=== PATIENT | female | born 1990 | race Caucasian/White ===

== ENCOUNTER 2020-04-16 17:40 | Inpatient (IN) | payer BC ==
[2020-04-16] MEDS ORDERED: Oxytocin/Normal Saline 30 UNIT/500 ML BAG IV SCH ×2 (20:30→21:00)
[2020-04-16] MEDS ORDERED: Acetaminophen 325 MG Tab PO PRN (20:48)
[2020-04-16] MEDS ORDERED: Lactated Ringers 1,000 ML IV ONE (20:48)
[2020-04-16] MEDS ORDERED: Sodium Chloride 0.9% 10 ML Syringe FLUSH PRN (20:48)
[2020-04-16] MEDS ORDERED: Tranexamic Acid 1,000 MG in Sodium Chloride 0.9% 100 ML IV PRN (20:48)
[2020-04-16] MEDS ORDERED: Lidocaine 1% 30 ML SDV INJECT PRN (20:48)
[2020-04-16] MEDS ORDERED: Methylergonovine 0.2 MG/1 ML Amp IM PRN (20:48)
[2020-04-16] MEDS ORDERED: Misoprostol 400 MCG (4 X 100 MCG TAB) RECTAL PRN (20:48)
[2020-04-16] MEDS ORDERED: Carboprost Tromethamine 250 MCG/1 ML Amp IM PRN (20:48)
[2020-04-16] MEDS ORDERED: fentaNYL 100 MCG/2 ML SDV IVPUSH PRN (20:48)
[2020-04-16] MEDS ORDERED: Ondansetron 4 MG/2 ML SDV IVPUSH PRN (20:48)
[2020-04-16] MEDS ORDERED: Promethazine 25 MG/ML SDV IM PRN (20:51)
[2020-04-16] MEDS ORDERED: Naloxone 2 MG/2 ML Syringe IVPUSH PRN (20:51)
[2020-04-16] MEDS ORDERED: ePHEDrine 50 MG/ML SDV IVPUSH PRN (20:51)
[2020-04-16] MEDS: Lactated Ringers 1,000 ML IV SCH (20:55)
[2020-04-16] MEDS ORDERED: Lactated Ringers 1,000 ML IV SCH (21:00)
--- NOTE | 2020-04-16 22:47 | OBOUT ---
DATE: 04/16/2020 PROCEDURE: Non-stress test. INDICATION FOR NST: Spontaneous rupture of membranes and the patient not feeling contractions. REPORT: Baseline heart rate 120 beats per minute. Moderate aodq-uc-dmyr variability. Accelerations noted. No decelerations. [place] shows only irregular contractions. INTERPRETATION: Category 1 reassuring and reactive NST. Of note, the patient's cervix is not changed from what it was in the office a few days ago, so she is not in active labor at this time, but does have premature rupture of membranes. [facility] /[id number]
--- NOTE | 2020-04-17 00:20 | HP ---
CHIEF COMPLAINT: Spontaneous rupture of membranes. HISTORY OF PRESENT ILLNESS: This is a 29-year-old, 2, para 1-0-0-1, currently at 39-5/7 weeks' gestation based on last menstrual period, reports to Labor and Delivery for labor evaluation after having a large gush of clear fluid at approximately 4 o'clock this afternoon. After kind of organizing her things and being driven in by her , her cervix was checked and essentially unchanged from what it was in the office a couple of days ago. She reports having some very mild contractions, but nothing that she would really make note or consider painful. Denies any vaginal bleeding. movement has been good. Admits to some mild nausea. No headache. No chest pain. No shortness of breath. No diarrhea or constipation. No right upper quadrant pain, and her trace edema has been unchanged. Denies any symptoms of hypertension. Reports that her blood sugars continue to be extremely well controlled, and there are no other specific concerns or problems. LABORATORY: Blood type O positive. Antibody screen was negative. Rubella immune. Syphilis serology nonreactive. Urine culture negative. Hepatitis B negative. HIV negative. Gonorrhea and chlamydia negative. TSH normal at 1.11. Hepatitis C nonreactive. Wet prep negative. Glucose tolerance test 1-hour score was 184. Group B strep test is negative. OBSTETRICAL HISTORY: 11/12/2015, 40 weeks 5 days gestation, vaginal delivery, male infant, weighing 3810 g, 8 pounds 6.4 ounces, born via spontaneous vaginal delivery. That was complicated by gestational hypertension. She did have premature rupture of membranes and induced with Pitocin. She did have some mild -induced hypertension, and her PIH labs were negative. Her gestational diabetes for that was very well controlled with diet alone. The baby's name is Vinicio Ardon. She was in labor for 6 hours, pushed for about 12 minutes, and his scores were 7 and 9. There were no complications. PAST MEDICAL HISTORY: Acne, gestational diabetes, gestational hypertension, and varicella at age 14 or 15. PAST SURGICAL HISTORY: Right side rotator cuff repair in spring, and wisdom teeth extraction. FAMILY HISTORY: Mother, sister, and brother are all alive and well. Father is alive, had diabetes diagnosed at age 48. Maternal grandmother . No known health problems. Maternal grandfather had a heart attack and is alive. Paternal grandparents are , and she does not know their health history. Maternal aunt is alive and has had a heart attack. Three maternal uncles have had heart problems, 2 have had heart attacks, and 1 has a pacemaker. There is no family history of any bleeding problems, clotting disorders, defects, multiples, seizures, anesthesia problems, or cystic fibrosis. Salvador's family members are overall healthy. SOCIAL HISTORY: The patient is a nonsmoker. She has had no significant alcohol exposures. 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 Her is a rancher and schneider. This is their second child together. ALLERGIES: Zantac is an intolerance, causes her chest and throat to have a burning and stinging sensation. It is even worse than actual heartburn. MEDICATIONS: Vitamin D 1 capsule daily, vitamin 1 daily, Tums 500 mg 2 tabs as needed for heartburn. She was on aspirin throughout the majority of her and discontinued that last week. REVIEW OF SYSTEMS: Pertinent positives and negatives under the history of present illness. A 12 system review is otherwise negative. PHYSICAL EXAMINATION: Vital Signs: Temperature 97.5, pulse of 82, blood pressure 142/90, respiratory rate of 16, and O2 saturations 99% on room air. Additional blood pressure was 138/91. HEENT: Grossly unremarkable. Neck: Supple without adenopathy. Heart: Regular without murmur. Lungs: Clear to auscultation bilaterally. Abdomen/Genitourinary: Gravid, soft, and nontender. Vertex presentation. heart tones are at 120 beats per minute at baseline, moderate wlhc-cf-ikdp variability with accelerations noted. [place] shows contractions initially, irregular, after initiating Pitocin they are about every 2 to 3 minutes apart. Cervix is 2 cm, effacement was difficult for the nurse to determine, -3 station and posterior. Extremities: Trace edema. No erythema or tenderness noted. LABORATORY DATA: COVID test is negative. Hemoglobin 12.9 and platelets 254. ASSESSMENT: 1. 39-5/7 weeks' gestation by last menstrual period. 2. 2, para 1-0-0-1. 3. Premature rupture of membranes at 4 p.m. 4. Blood type A positive, rubella immune, and group B Streptococcus negative. 5. Diet-controlled gestational diabetes. 6. History of gestational hypertension prior , and now developing in this . PLAN: The patient has been admitted to the labor and delivery floor, and Pitocin initiated to help bring on labor, and expect that she will be delivering in the next 6 to 8 hours as soon as we can get her into labor. Blood pressures are right at the borderline since she is already ruptured. I have elected not to draw any preeclampsia labs at this time as it will not change the course of management, and the patient will already be on monitoring and precautions for the rest of her pregnancies because of a history of gestational hypertension. We will be expecting vaginal delivery, making any changes to plan as deemed necessary based on her clinical course. [facility] /[id number]
[2020-04-17] MEDS ORDERED: EPINEPHrine 1 MG/1 ML Amp ONE ×2 (01:59→02:00)
[2020-04-17] MEDS ORDERED: fentaNYL 100 MCG/2 ML SDV ONE (01:59)
[2020-04-17] MEDS ORDERED: Sodium Bicarbonate 4.2% 2.5 MEQ/5 ML SDV ONE ×2 (01:59→02:00)
[2020-04-17] MEDS ORDERED: fentaNYL 100 MCG/2 ML SDV ITHECAL ONE (02:00)
[2020-04-17] MEDS ORDERED: Sodium Chloride 0.9% 20 ML SDV ONE (02:00)
[2020-04-17] MEDS: Lactated Ringers 1,000 ML IV SCH (02:26)
--- NOTE | 2020-04-17 02:36 | PCM.SN.2 ---
- Free Text/Narrative Note: Intrathecal. Sitting position, sterile prep and drape. 1% lidocaine w bicarb for skinwheal to L2 L3 interspace, introducer, 24 ga pencan x 1. Pos CSF, neg heme, neg parasthesia. 0.1 ml 1:1000 pf Epi, 20 mcg pf sufenta, 30 mcg pf fentanyl, 0.4 ml pf NS and 6 mg of 0.75% pf marcaine injected after CSF aspiration. Pt to L lateral position. Procedure time 0155 to 0225
[2020-04-17] MEDS ORDERED: Simethicone 80 MG Tab.Chew PO PRN (05:56)
[2020-04-17] MEDS ORDERED: Benzocaine/Menthol 20%-0.5% Spray 56 GM Canister TOP PRN (05:56)
--- NOTE | 2020-04-17 06:42 | DEL ---
DATE: 04/17/2020 PREPROCEDURE DIAGNOSES: 1. 2, para 1-0-0-1. 2. A 39-5/7 weeks' gestation. 3. Gestational diabetes, diet controlled. 4. History of gestational hypertension, prior . 5. Blood type O positive, rubella immune, and group B streptococcus negative. 6. Premature rupture of membranes. POSTPROCEDURE DIAGNOSES: 1. 2, now para 2-0-0-2. 2. A 39-5/7 weeks' gestation. 3. Gestational diabetes, diet controlled. 4. History of gestational hypertension, prior . 5. Blood type O positive, rubella immune, and group B streptococcus negative. 6. Premature rupture of membranes. 7. Status post spontaneous vaginal delivery. 8. First-degree laceration repair. ANESTHESIA: Intrathecal. BRIEF HISTORY: A 29-year-old female with the above-listed diagnoses presented to the hospital with premature rupture of membranes. She had ruptured around 4 o'clock in the evening and presented closer to 8 p.m. and was having some irregular contractions but not really feeling them, and cervix was unchanged from her exam in the clinic. Pitocin was initiated, and around 2 o'clock in the morning, she was 4 cm dilated, and by 4 o'clock in the morning, she was 6 cm dilated, and at 5 a.m., she was complete and ready to push. Active-stage labor was about 4 hours. She pushed for 6 minutes and the placenta delivered after 3 minutes with the details as below. DESCRIPTION OF PROCEDURE: In the dorsal lithotomy position, the patient delivered a viable male in an OA position over an intact perineum. The baby was dried and stimulated and then placed up on the mother's abdomen. The nurse was then able to bulb suction the oral cavity, and a 3-vessel umbilical cord was doubly clamped and then cut. A cord blood sample was obtained. The placenta delivered by gentle cord traction and concomitant uterine massage, inspected and intact. Labia, vagina, and cervix were inspected, and the cervix was intact. She had a first-degree laceration that was repaired with 3-0 Vicryl in the usual fashion with good cosmetic result. ESTIMATED BLOOD LOSS: 400 mL. COMPLICATIONS: None. DISPOSITION: Mother and baby are to stay in the room to initiate breast- feeding. FINDINGS: Weight 3900 grams, 8# 10 oz and scores are 8 and 9. [facility] /[id number] MTDEstelle
[2020-04-17] MEDS: Ibuprofen 800 MG Tab PO PRN ×3 (09:45→23:26)
[2020-04-17] MEDS: Prenatal Multivitamin with Calcium/Folic Acid/Iron Tab PO SCH (09:45)
[2020-04-17] MEDS: Ferrous Sulfate 325 MG Tab PO SCH (09:45)
[2020-04-17] MEDS: Docusate Sodium 100 MG Cap PO PRN (23:26)
[2020-04-18] MEDS: Docusate Sodium 100 MG Cap PO PRN (09:13)
[2020-04-18] MEDS: Prenatal Multivitamin with Calcium/Folic Acid/Iron Tab PO SCH (09:13)
[2020-04-18] MEDS: Ibuprofen 800 MG Tab PO PRN (09:13)
[2020-04-18] MEDS: Ferrous Sulfate 325 MG Tab PO SCH (09:14)
[2020-04-18] MEDS ORDERED: Witch Hazel Medicated Pads 100/Jar TOP PRN (09:49)
--- NOTE | 2020-04-18 10:13 | PCM.PN ---
<FelicianokristyTanya Estelle - Last Filed: 04/18/20 10:08> - General Info Date of Service: 04/18/20 Admission Dx/Problem (Free Text): Labor and delivery, spontaneous vaginal Subjective Update: Patient is a 29-year-old s/p spontaneous vaginal delivery 04/16/20. Doing well today. No complaints. Pain is well controlled. Tolerating general diet without nausea, vomiting. Ambulating, voiding without difficulty. Passing gas. Breast feeding. Vaginal bleeding decreasing, similar to prior . Functional Status: Reports: Pain Controlled, Tolerating Diet, Ambulating, Urinating - Review of Systems General: Reports: No Symptoms HEENT: Reports: No Symptoms Pulmonary: Reports: No Symptoms Cardiovascular: Reports: No Symptoms Gastrointestinal: Reports: No Symptoms Genitourinary: Reports: No Symptoms Musculoskeletal: Reports: No Symptoms Skin: Reports: No Symptoms Neurological: Reports: No Symptoms Psychiatric: Reports: No Symptoms - Patient Data Vitals - Most Recent: Last Vital Signs Temp 98.6 F 04/17/20 20:00 Pulse 69 04/17/20 20:00 Resp 16 04/17/20 20:00 BP 137/76 04/17/20 20:00 Pulse Ox 100 04/17/20 20:00 Weight - Most Recent: 188 lb I&O - Last 24 Hours: Intake & Output 04/17/20 04/18/20 04/18/20 22:59 06:59 14:59 Intake Total 240 Balance 240 Med Orders - Current: Current Medications Acetaminophen (Tylenol) 650 mg PO Q4H PRN PRN Reason: Pain (Mild 1-3) and fever Last Admin: 04/17/20 23:26 Dose: 650 mg Documented by: Benzocaine/Menthol (Dermoplast Pain Relief [place]) 0 gm TOP Q4H PRN PRN Reason: Perineal comfort measures Carboprost Tromethamine (Hemabate Ds) 250 mcg IM ASDIRECTED PRN PRN Reason: HEMORRHAGE Docusate Sodium (Colace) 100 mg PO BID PRN PRN Reason: Constipation Last Admin: 04/18/20 09:13 Dose: 100 mg Documented by: Ferrous Sulfate (Ferrous Sulfate) 325 mg PO WITHBREAKFAST GEOVANNA Last Admin: 04/18/20 09:14 Dose: 325 mg Documented by: Oxytocin/Sodium Chloride (Pitocin In Ns 30 Unit/500 Ml) 30 unit in 500 mls @ 2 mls/hr IV TITRATE GEOVANNA; Protocol Last Titration: 04/17/20 06:50 Dose: 0 munits/min, 0 mls/hr Documented by: Tranexamic Acid 1,000 mg/ (Sodium Chloride) 110 mls @ 660 mls/hr IV ONETIME PRN PRN Reason: Bleeding Oxytocin/Sodium Chloride (Pitocin In Ns 30 Unit/500 Ml) 30 unit in 500 mls @ 2 mls/hr IV TITRATE GE[facility]NA; Protocol Last Titration: 04/17/20 09:00 Dose: 0 munits/min, 0 mls/hr Documented by: Ibuprofen (Motrin) 800 mg PO Q8H PRN PRN Reason: Cramping Last Admin: 04/18/20 09:13 Dose: 800 mg Documented by: Methylergonovine Maleate (Methergine) 0.2 mg IM ASDIRECTED PRN PRN Reason: Hemorrhage Misoprostol (Cytotec) 800 mcg RECTAL ASDIRECTED PRN PRN Reason: Hemorrhage Prenat Multivit/Bag Machine Helper/Iron/Folic Ac ( Plus Iron) 1 each PO DAILY [facility] Last Admin: 04/18/20 09:13 Dose: 1 each Documented by: Promethazine HCl (Phenergan) 12.5 mg IM Q6H PRN PRN Reason: Nausea/Vomiting Simethicone (Simethicone) 80 mg PO Q4H PRN PRN Reason: Gas Sodium Chloride (Saline Flush) 10 ml FLUSH ASDIRECTED PRN PRN Reason: Keep Vein Open Witdanica Butlerel (Tucks) 1 pad TOP ASDIRECTED PRN PRN Reason: Pain Discontinued Medications Ephedrine Sulfate (Ephedrine Sulfate) 5 mg IVPUSH Q5M PRN PRN Reason: See Label Comments Epinephrine HCl (Adrenalin) Confirm Administered Dose 1 mg .ROUTE .STK-MED ONE Stop: 04/17/20 02:00 Last Admin: 04/17/20 09:33 Dose: Not Given Documented by: Fentanyl (Sublimaze) 100 mcg IVPUSH Q1H PRN PRN Reason: Pain (moderate 4-6) Fentanyl (Sublimaze) Confirm Administered Dose 100 mcg .ROUTE .STK-MED ONE Stop: 04/17/20 02:00 Last Admin: 04/17/20 09:33 Dose: Not Given Documented by: Lactated Ringer's (Ringers, Lactated) 1,000 mls @ 125 mls/hr IV ASDIRECTED [facility] Last Admin: 04/17/20 02:26 Dose: 125 mls/hr Documented by: Lactated Ringer's (Ringers, Lactated) 1,000 mls @ 999 mls/hr IV BOLUS ONE Stop: 04/16/20 21:48 Last Admin: 04/17/20 01:45 Dose: 999 mls/hr Documented by: Lactated Ringer's (Ringers, Lactated) 1,000 mls @ 125 mls/hr IV ASDIRECTED [facility] Lidocaine HCl (Xylocaine-Mpf 1%) 30 ml INJECT ASDIRECTED PRN PRN Reason: Perineal Repair Naloxone HCl (Narcan) 0.1 mg IVPUSH SEECOMMENT PRN PRN Reason: Respiratory Depression Ondansetron HCl (Zofran) 4 mg IVPUSH Q4H PRN PRN Reason: Nausea/Vomiting Last Admin: 04/17/20 01:50 Dose: 4 mg Documented by: Sodium Bicarbonate (Sodium Bicarbonate 4.2%) Confirm Administered Dose 2.5 meq .ROUTE .STK-MED ONE Stop: 04/17/20 02:00 Last Admin: 04/17/20 09:33 Dose: Not Given Documented by: Sufentanil Citrate (Sufenta) Confirm Administered Dose 50 mcg .ROUTE .STK-MED ONE Stop: 04/17/20 02:00 Last Admin: 04/17/20 09:34 Dose: Not Given Documented by: - Exam General: Alert, Oriented, Cooperative, No Acute Distress HEENT: EOMI, Mucous Membr. Moist/Joice Neck: Supple Lungs: Clear to Auscultation, Normal Respiratory Effort Cardiovascular: Regular Rate, Regular Rhythm, No Murmurs GI/Abdominal Exam: Normal Bowel Sounds, Soft, Non-Tender (Female) Exam: Enlarged Uterus. No: Uterine Tenderness Extremities: Normal Inspection, Normal Range of Motion, Non-Tender, No Pedal Edema Peripheral Pulses: 2+: Brachial (L), Brachial (R) Skin: Warm, Dry, Intact Neurological: No New Focal Deficit, Normal Speech, Normal Tone Psy/Mental Status: Alert, Normal Affect, Normal Mood Sepsis Event Note - Evaluation Sepsis Screening Result: No Definite Risk - Problem List Review Problem List Initiated/Reviewed/Updated: Yes - Assessment Assessment:: Patient is a 29-year-old female s/p spontaneous vaginal delivery 04/16/20. Progressing as expected. - Plan Plan:: Discharge today. Provided anticipatory guidance and discussed reasons to seek medical attention. Will follow-up with baby in the clinic 04/20/20. <Ofe Coleman - Last Filed: 04/18/20 21:54> - Patient Data Vitals - Most Recent: Last Vital Signs Temp 97.4 F 04/18/20 08:00 Pulse 72 04/18/20 08:00 Resp 14 04/18/20 08:00 BP 133/85 04/18/20 08:00 Pulse Ox 100 04/17/20 20:00 Med Orders - Current: Current Medications Discontinued Medications Acetaminophen (Tylenol) 650 mg PO Q4H PRN PRN Reason: Pain (Mild 1-3) and fever Last Admin: 04/17/20 23:26 Dose: 650 mg Documented by: Benzocaine/Menthol (Dermoplast Pain Relief [place]) 0 gm TOP Q4H PRN PRN Reason: Perineal comfort measures Last Admin: 04/18/20 10:32 Dose: 1 spray Documented by: Carboprost Tromethamine (Hemabate Ds) 250 mcg IM ASDIRECTED PRN PRN Reason: HEMORRHAGE Docusate Sodium (Colace) 100 mg PO BID PRN PRN Reason: Constipation Last Admin: 04/18/20 09:13 Dose: 100 mg Documented by: Ephedrine Sulfate (Ephedrine Sulfate) 5 mg IVPUSH Q5M PRN PRN Reason: See Label Comments Epinephrine HCl (Adrenalin) Confirm Administered Dose 1 mg .ROUTE .STK-MED ONE Stop: 04/17/20 02:00 Last Admin: 04/17/20 09:33 Dose: Not Given Documented by: Fentanyl (Sublimaze) 100 mcg IVPUSH Q1H PRN PRN Reason: Pain (moderate 4-6) Fentanyl (Sublimaze) Confirm Administered Dose 100 mcg .ROUTE .STK-MED ONE Stop: 04/17/20 02:00 Last Admin: 04/17/20 09:33 Dose: Not Given Documented by: Ferrous Sulfate (Ferrous Sulfate) 325 mg PO WITHBREAKFAST GEOVANNA Last Admin: 04/18/20 09:14 Dose: 325 mg Documented by: Oxytocin/Sodium Chloride (Pitocin In Ns 30 Unit/500 Ml) 30 unit in 500 mls @ 2 mls/hr IV TITRATE GEOVANNA; Protocol Last Titration: 04/17/20 06:50 Dose: 0 munits/min, 0 mls/hr Documented by: Lactated Ringer's (Ringers, Lactated) 1,000 mls @ 125 mls/hr IV ASDIRECTED [facility] Last Admin: 04/17/20 02:26 Dose: 125 mls/hr Documented by: Lactated Ringer's (Ringers, Lactated) 1,000 mls @ 999 mls/hr IV BOLUS ONE Stop: 04/16/20 21:48 Last Admin: 04/17/20 01:45 Dose: 999 mls/hr Documented by: Lactated Ringer's (Ringers, Lactated) 1,000 mls @ 125 mls/hr IV ASDIRECTED [facility] Tranexamic Acid 1,000 mg/ (Sodium Chloride) 110 mls @ 660 mls/hr IV ONETIME PRN PRN Reason: Bleeding Oxytocin/Sodium Chloride (Pitocin In Ns 30 Unit/500 Ml) 30 unit in 500 mls @ 2 mls/hr IV TITRATE GE[facility]ANNA; Protocol Last Titration: 04/17/20 09:00 Dose: 0 munits/min, 0 mls/hr Documented by: Ibuprofen (Motrin) 800 mg PO Q8H PRN PRN Reason: Cramping Last Admin: 04/18/20 09:13 Dose: 800 mg Documented by: Lidocaine HCl (Xylocaine-Mpf 1%) 30 ml INJECT ASDIRECTED PRN PRN Reason: Perineal Repair Methylergonovine Maleate (Methergine) 0.2 mg IM ASDIRECTED PRN PRN Reason: Hemorrhage Misoprostol (Cytotec) 800 mcg RECTAL ASDIRECTED PRN PRN Reason: Hemorrhage Naloxone HCl (Narcan) 0.1 mg IVPUSH SEECOMMENT PRN PRN Reason: Respiratory Depression Ondansetron HCl (Zofran) 4 mg IVPUSH Q4H PRN PRN Reason: Nausea/Vomiting Last Admin: 04/17/20 01:50 Dose: 4 mg Documented by: Prenat Multivit/[place]/Iron/Folic Ac ( Plus Iron) 1 each PO DAILY [facility] Last Admin: 04/18/20 09:13 Dose: 1 each Documented by: Promethazine HCl (Phenergan) 12.5 mg IM Q6H PRN PRN Reason: Nausea/Vomiting Simethicone (Simethicone) 80 mg PO Q4H PRN PRN Reason: Gas Sodium Bicarbonate (Sodium Bicarbonate 4.2%) Confirm Administered Dose 2.5 meq .ROUTE .STK-MED ONE Stop: 04/17/20 02:00 Last Admin: 04/17/20 09:33 Dose: Not Given Documented by: Sodium Chloride (Saline Flush) 10 ml FLUSH ASDIRECTED PRN PRN Reason: Keep Vein Open Sufentanil Citrate (Sufenta) Confirm Administered Dose 50 mcg .ROUTE .STK-MED ONE Stop: 04/17/20 02:00 Last Admin: 04/17/20 09:34 Dose: Not Given Documented by: Romel Handley ([facility]) 1 pad TOP ASDIRECTED PRN PRN Reason: Pain Last Admin: 04/18/20 10:31 Dose: 1 pad Documented by: - Problem List Review Problem List Initiated/Reviewed/Updated: Yes - Plan Plan:: Patient was personally seen and examined with the medical student. I reviewed the note scribed on my behalf and necessary changes have been made to reflect my opinion on the history, exam, assessment and plan. Patient is doing well and desires 24 hour discharge. 6 week post visit will be scheduled with Dr. Millan. Ofe Coleman MD
[2020-04-18 14:02] VITALS: BP 133/85; PULSE 72
--- NOTE | 2020-04-18 22:24 | PCM.DCSUM1 ---
Discharge Summary - Hospital Course Free Text/Narrative:: Patient presented to [facility] after SROM. Pitocin was initiated and she progressed to complete. She did receive an intrathecal. Delivery was uncomplicated. Pressures mildly elevated but PIH labs not done as she was already ruptured. Pressures normalized after delivery. Post course was uncomplicated and she was discharged home at 24 hours. 6 week post to be scheduled with Dr. Millan. - Discharge Data Discharge Date: 04/18/20 Discharge Disposition: Home, Self-Care 01 Condition: Good - Referral to Home Health Primary Care Physician: Elba Powell MD - Patient Summary/Data Consults: Consultations 04/17/20 05:56 Consult to Lockstitch Machine Operator [CONS] Routine - Patient Instructions Diet: Regular Diet as Tolerated Activity: No Lifting Over 20 Pounds Showering/Bathing: July Shower Notify Provider of: Fever, Increased Pain, Swelling and Redness, Drainage, Nausea and/or Vomiting - Discharge Plan *PRESCRIPTION DRUG MONITORING PROGRAM REVIEWED*: Not Applicable *COPY OF PRESCRIPTION DRUG MONITORING REPORT IN PATIENT [place]: Not Applicable Home Medications: Home Meds Acetaminophen [Tylenol] 650 mg PO Q4H PRN tablet 04/18/20 [Rx] Docusate Sodium [Colace] 100 mg PO BID PRN cap 04/18/20 [Rx] Ibuprofen [Motrin] 800 mg PO Q8H PRN tablet 04/18/20 [Rx] Vit with Ca/FA/Iron [ Plus Iron] 1 each PO DAILY tablet 04/18/20 [Rx] romel andersoneL [Tucks] 1 pad TOP ASDIRECTED PRN pad 04/18/20 [Rx] Patient Handouts: Baby Blues, Care of a Perineal Tear, Care After Vaginal Delivery - Discharge Summary/Plan Comment DC Time >30 min.: No - Patient Data Vitals - Most Recent: Last Vital Signs Temp 97.4 F 04/18/20 08:00 Pulse 72 04/18/20 08:00 Resp 14 04/18/20 08:00 BP 133/85 04/18/20 08:00 Pulse Ox 100 04/17/20 20:00 Weight - Most Recent: 188 lb Med Orders - Current: Current Medications Discontinued Medications Acetaminophen (Tylenol) 650 mg PO Q4H PRN PRN Reason: Pain (Mild 1-3) and fever Last Admin: 04/17/20 23:26 Dose: 650 mg Documented by: Benzocaine/Menthol (Dermoplast Pain Relief [place]) 0 gm TOP Q4H PRN PRN Reason: Perineal comfort measures Last Admin: 04/18/20 10:32 Dose: 1 spray Documented by: Carboprost Tromethamine (Hemabate Ds) 250 mcg IM ASDIRECTED PRN PRN Reason: HEMORRHAGE Docusate Sodium (Colace) 100 mg PO BID PRN PRN Reason: Constipation Last Admin: 04/18/20 09:13 Dose: 100 mg Documented by: Ephedrine Sulfate (Ephedrine Sulfate) 5 mg IVPUSH Q5M PRN PRN Reason: See Label Comments Epinephrine HCl (Adrenalin) Confirm Administered Dose 1 mg .ROUTE .STK-MED ONE Stop: 04/17/20 02:00 Last Admin: 04/17/20 09:33 Dose: Not Given Documented by: Fentanyl (Sublimaze) 100 mcg IVPUSH Q1H PRN PRN Reason: Pain (moderate 4-6) Fentanyl (Sublimaze) Confirm Administered Dose 100 mcg .ROUTE .STK-MED ONE Stop: 04/17/20 02:00 Last Admin: 04/17/20 09:33 Dose: Not Given Documented by: Ferrous Sulfate (Ferrous Sulfate) 325 mg PO WITHBREAKFAST GEOVANNA Last Admin: 04/18/20 09:14 Dose: 325 mg Documented by: Oxytocin/Sodium Chloride (Pitocin In Ns 30 Unit/500 Ml) 30 unit in 500 mls @ 2 mls/hr IV TITRATE GEOVANNA; Protocol Last Titration: 04/17/20 06:50 Dose: 0 munits/min, 0 mls/hr Documented by: Lactated Ringer's (Ringers, Lactated) 1,000 mls @ 125 mls/hr IV ASDIRECTED [facility] Last Admin: 04/17/20 02:26 Dose: 125 mls/hr Documented by: Lactated Ringer's (Ringers, Lactated) 1,000 mls @ 999 mls/hr IV BOLUS ONE Stop: 04/16/20 21:48 Last Admin: 04/17/20 01:45 Dose: 999 mls/hr Documented by: Lactated Ringer's (Ringers, Lactated) 1,000 mls @ 125 mls/hr IV ASDIRECTED [facility] Tranexamic Acid 1,000 mg/ (Sodium Chloride) 110 mls @ 660 mls/hr IV ONETIME PRN PRN Reason: Bleeding Oxytocin/Sodium Chloride (Pitocin In Ns 30 Unit/500 Ml) 30 unit in 500 mls @ 2 mls/hr IV TITRATE [facility]; Protocol Last Titration: 04/17/20 09:00 Dose: 0 munits/min, 0 mls/hr Documented by: Ibuprofen (Motrin) 800 mg PO Q8H PRN PRN Reason: Cramping Last Admin: 04/18/20 09:13 Dose: 800 mg Documented by: Lidocaine HCl (Xylocaine-Mpf 1%) 30 ml INJECT ASDIRECTED PRN PRN Reason: Perineal Repair Methylergonovine Maleate (Methergine) 0.2 mg IM ASDIRECTED PRN PRN Reason: Hemorrhage Misoprostol (Cytotec) 800 mcg RECTAL ASDIRECTED PRN PRN Reason: Hemorrhage Naloxone HCl (Narcan) 0.1 mg IVPUSH SEECOMMENT PRN PRN Reason: Respiratory Depression Ondansetron HCl (Zofran) 4 mg IVPUSH Q4H PRN PRN Reason: Nausea/Vomiting Last Admin: 04/17/20 01:50 Dose: 4 mg Documented by: Prenat Multivit/Flight Agent/Iron/Folic Ac ( Plus Iron) 1 each PO DAILY [facility] Last Admin: 04/18/20 09:13 Dose: 1 each Documented by: Promethazine HCl (Phenergan) 12.5 mg IM Q6H PRN PRN Reason: Nausea/Vomiting Simethicone (Simethicone) 80 mg PO Q4H PRN PRN Reason: Gas Sodium Bicarbonate (Sodium Bicarbonate 4.2%) Confirm Administered Dose 2.5 meq .ROUTE .STK-MED ONE Stop: 04/17/20 02:00 Last Admin: 04/17/20 09:33 Dose: Not Given Documented by: Sodium Chloride (Saline Flush) 10 ml FLUSH ASDIRECTED PRN PRN Reason: Keep Vein Open Sufentanil Citrate (Sufenta) Confirm Administered Dose 50 mcg .ROUTE .STK-MED ONE Stop: 04/17/20 02:00 Last Admin: 04/17/20 09:34 Dose: Not Given Documented by: Romel Parikh) 1 pad TOP ASDIRECTED PRN PRN Reason: Pain Last Admin: 04/18/20 10:31 Dose: 1 pad Documented by:
== END 2020-04-18 11:30 | disposition home or self-care (01) | DRG 560 ==
LOC: DL.OBCHECK 17:40 → DL.OB 18:42 → OBSVTOIN 04-17 05:22
PROVIDERS: ADMIT Family Medicine; ATTEND Family Medicine
PROC: 10E0XZZ Delivery of Products of Conception, External Approach (ICD-10-PCS; principal; 2020-04-17)
PROC: 4A1HXCZ Monitoring of Products of Conception, Cardiac Rate, External Approach (ICD-10-PCS; 2020-04-17)
PROC: 3E0R3BZ Introduction of Anesthetic Agent into Spinal Canal, Percutaneous Approach (ICD-10-PCS; 2020-04-17)
PROC: 0HQ9XZZ Repair Perineum Skin, External Approach (ICD-10-PCS; 2020-04-17)
DX: O24.420 Gestational diabetes mellitus in childbirth, diet controlled (principal); Z3A.39 39 weeks gestation of pregnancy; Z37.0 Single live birth; Z88.8 Allergy status to other drugs, medicaments and biological substances; O42.02 Full-term premature rupture of membranes, onset of labor within 24 hours of rupture; O70.0 First degree perineal laceration during delivery; Z20.822 Contact with and (suspected) exposure to COVID-19
CPT/HCPCS: 01967; 36415; 51701; 59025; 59409; 85027; A9270-GY; J0171; J2405; J2590; J3010; J7120; U0002